=== PATIENT | male | born 1975 | race Caucasian/White ===

== ENCOUNTER 2024-04-12 09:29 | Day surgery (SDC) | payer OTHER ==
[2024-04-09 13:40] VITALS: BMI 29.0
[2024-04-12] MEDS ORDERED: PROPOFOL 20 ML ONE (09:35)
[2024-04-12] MEDS ORDERED: ROCURONIUM BROMIDE 50 MG/5 ML SYRINGE ONE ×2 (09:36→15:07)
[2024-04-12] MEDS ORDERED: MIDAZOLAM HCL 2 MG/2 ML SINGLE DOSE VIAL ONE (09:36)
[2024-04-12] MEDS ORDERED: ONDANSETRON 4 MG/2 ML VIAL IVPUSH PRN (11:11)
[2024-04-12] MEDS ORDERED: ROPIVACAINE HCL/PF 100 MG/20 ML VIAL ONE (11:17)
[2024-04-12] MEDS ORDERED: SUGAMMADEX SODIUM 200 MG/2 ML VIAL ONE ×2 (15:20→16:16)
[2024-04-12] MEDS ORDERED: oxyCODONE HCL 5 MG TABLET PO PRN (17:17)
[2024-04-12 17:44] VITALS: RESP 16; TEMP 97.8
[2024-04-12 18:09] VITALS: BP 143/78; PULSE 77
== END 2024-04-12 18:56 | disposition home or self-care (01) ==
LOC: FASU 09:29
PROVIDERS: ATTEND Orthopaedic Surgery Sports Medicine
PROC: 0LS34ZZ Reposition Right Upper Arm Tendon, Percutaneous Endoscopic Approach (ICD-10-PCS; principal; 2024-04-12 12:37)
PROC: 0RNJ4ZZ Release Right Shoulder Joint, Percutaneous Endoscopic Approach (ICD-10-PCS; 2024-04-12 12:37)
DX: M75.121 Complete rotator cuff tear or rupture of right shoulder, not specified as traumatic (principal)
CPT/HCPCS: 88304-TC; 94760; C1713